=== PATIENT | male | born 2005 | race Caucasian/White ===

== ENCOUNTER 2025-04-12 17:44 | Emergency (ER) | payer BC, SELFPAY ==
--- NOTE | ~2025-04-12 | XR_ITS ---
XR chest 2V Ordering provider: Yuko Manley NP History: 19 years Male with . cough, SOB . Comparison: None. FINDINGS: MEDIASTINUM: The cardiac silhouette is not enlarged. LUNGS: No infiltrates, effusions or pneumothorax. OTHER: No free air under the diaphragm. IMPRESSION: No acute cardiopulmonary pathology. Reviewed, dictated and finalized at location A.
[2025-04-12 17:52] VITALS: BP 123/73; PULSE 95; RESP 16; TEMP 37.5; O2SAT 99
--- OUTSIDE RECORDS SUMMARY | 2025-04-12 18:20 | XMS_ITS | Clinical Summary ---
Author Organization [facility] Address [address] [address] Phone Care Team Providers Care Email Specialist Name Role Phone Unavailable Primary Care Provider Unavailabl e Allergies No known active allergies Medications Naproxen Sodium (ALEVE PO) Take by mouth. Active Active Problems No known active problems Immunizations Immunization Administration Dates Next Due COVID-19, Mrna, Lnp-s, Pf, 5 0 mcg/0.5 mL 11/12/2023 Covid-19, Mrna, Lnp-s, Pf, 3 0 Mcg/0.3 Ml Dose (Pfizer) 04/15/2021 DTAP VACCINE 2003,2003,2003 Hepatitis B Vaccine, Pediatric/adolescent 2003,2003,2003,04/26 Hib Vaccine,unspecified Formulation 2003,1 ,2003 Inactivated Polio Vaccine 2003,2003, 2003 Influenza Vaccine, Quadrivalent, PF 11/12/2023,1 12/16/2020 Meningococcal Vaccine 08/15/2020,03/31/2017,05/2014 Pneumococcal Vaccine Peds - 7 Valent 2003, 2003,2003 TDAP Vaccine 08/15/2023,03/31/2017,06/08/2014 Varicella Vaccine Live 08/08/2014 Family History Medical History Relation Name Comments No Known Problems Father Thyroid Disease Half-Sister Parkinsonism Maternal Grandfather Aneurysm Maternal Grandmother AAA Hypertension Maternal Grandmother No Known Problems Mother No Known Problems Paternal Grandfather Diabetes Paternal Grandmother Heart Attack Paternal Grandmother Heart Surgery Paternal Grandmother No Known Problems Sister Relation Name Status Comments Father Alive Half-Sister Alive Maternal Grandfather Alive Maternal Grandmother Alive Mother Alive Paternal Grandfather Alive Paternal Grandmother Alive Sister Alive Social History Tobacco Use Types Packs/Day Years Used Date Smoking Tobacco: Never Smokeless Tobacco: Never Tobacco Cessation:Counseling Given: Yes Alcohol Use Standard Drinks/Week Comments Never 0 (1 standard drink = 0.6 oz pur e alcohol) AUDIT-C Answer Date Recorded Q1: How often do you have a drink containing alc ohol? Never 06/15/2020 Average Number of Drinks Not on file 020 Frequency of Binge Drinking Not on file 06/02 PHQ-2 Answer Date Recorded Total Score - Questions 1-9 0 06/02 Education Answer Date Recorded What is the highest level of school you have completed or the highest degree you have received? Some college, no degree 06/05/2023 Sexually Active Control Partners Comments Not Currently Female Sex and Gender Information Value Date Recorded Sex Assigned at Not on file Legal Sex Male 10:17 AM CDT Gender Identity Not on file Sexual Orientation Not on file Last Filed Vital Signs Vital Sign Reading Time Taken Comments Blood Pressure 120/66 06/05/2023 2:37 PM CDT Pulse 86 06/05/2023 2:37 PM CDT Temperature 37.1 C (98.8 F) 06/05/2023 2:37 PM CDT Respiratory Rate 18 06/05/2023 2:37 PM CDT Oxygen Saturation 98% 06/05/2023 2:37 PM CDT Inhaled Oxygen Concentration - - Weight 90.6 kg (199 lb 11.2 oz) 06/05/2023 2:37 PM CDT Height 190.5 cm (6' 3) 06/05/2023 2:37 PM CDT Body Mass Index 24.96 06/05/2023 2:37 PM CDT Plan of Treatment Health Maintenance Due Date Last Done Comments Human Papillomavirus (HPV) Immunization (1 - Male 3-dose series) 2018 Meningococcal B Immunization (1 of 2 - Standard) 2019 SARS-COV-2 Immunization ( season) 2024 11/12/2023, 11/10/2021, 04/15/2021, Additional history exists Influenza Immunization (Season Ended) 2025 11/12/2023, 10/15/2021 DTaP/Tdap/Td Immunization (7 - Td or Tdap) 08/15/2033 08/15/2023, 03/31/2017, 06/08/2014, Additional history exists Respiratory Syncytial Virus (RSV) Immunization (Adult) (1 - 1-dose 75+ series) 2078 Hepatitis B Immunization Completed , 2003, 2003, Additional history exists Pneumococcal Immunization Combined Aged Out 2003, 2003, 2003 No longer eligible based on patient's age to complete this topic Polio (IPV) Immunization Discontinued , 2003, 2003 Varicella Immunization Discontinued 08/08/2014 Meningococcal Immunization (ACWY) Completed 08/15/2020, 03/31/2017, 06/08/2014 Hepatitis C Virus (HCV) Screening Discontinued Rotavirus Immunization Aged Out No lo nger eligible based on patient's age to complete this topic Insurance [facility]
--- OUTSIDE RECORDS SUMMARY | 2025-04-12 18:21 | XMS_ITS | Referral Summary ---
Author Organization [facility] [address] [facility] Address [address] [place] [address] Care Team Providers Care Shingle Trimmer Name Role Phone Tonia Canela NP Primary Care Provider [phone] Allergies No known active allergies Medications No known medications Active Problems No known active problems Immunizations Immunization Administration Dates Next Due DTaP 2003,2003,2003 Hep B, Adolescent or Pediatric 3,2003,2003,04/26 HiB 2003,2003,2003 IPV 2003,2003,2003 Influenza, Quadrivalent, Spl it, Preservative Free, Intramuscular 11/12/2023,10/15/2021 Influenza, Trivalent, Preser vative Free, Intramuscular 08/12/2024 Meningococcal MCV4P (Menactra) 08/15/2020,2016,06/08/2014 Pneumococcal Conjugate 7-Valent 2003,08/28,2003 Tdap 08/15/2023,03/31/2017,06/08/2014 Varicella 08/08/2014 Social History Tobacco Use Types Packs/Day Years Used Date Smoking Tobacco: Never Cigarettes Smokeless Tobacco: Never Tobacco Cessation:Counseling Given: Not Answered Alcohol Use Standard Drinks/Week Comments No 0 (1 standard drink = 0.6 oz pur e alcohol) AUDIT-C Answer Date Recorded Q1: How often do you have a drink containing alc ohol? Monthly or less 08/12/2024 Q2: How many drinks containi ng alcohol do you have on a typical day when you are drinking? 1 or 2 08/12/2024 Q3: How often do you have si x or more drinks on one occasion? 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 Gender Identity Not on file Sexual Orientation Not on file Last Filed Vital Signs Vital Sign Reading Time Taken Comments Blood Pressure 112/76 08/12/2024 2:52 PM CDT Pulse 68 08/12/2024 2:52 PM CDT Temperature 36.8 C (98.2 F) 08/12/2024 2:52 PM CDT Respiratory Rate 16 08/12/2024 2:52 PM CDT Oxygen Saturation 99% 08/12/2024 2:52 PM CDT Inhaled Oxygen Concentration - - Weight 95.1 kg (209 lb 9.6 oz) 08/12/2024 2:52 P M CDT Height 188 cm (6' 2) 08/12/2024 2:52 PM CDT Body Mass Index 26.91 08/12/2024 2:52 PM CDT Plan of Treatment Not on file Procedures Procedure Name Priority Date/Time Associated Diagnosis Comments HEPATITIS C ANTIBODY Routine 08/12/2024 3:18 PM CDT Encounter for hepatitis C screening test for low risk patient from Last 3 Months or Most Recently Relevant to Health Maintenance Results * Hepatitis C antibody Blood (08/12/2024 3:18 PM CDT) Hep C Ab Nonreactive Nonreactive Comment: Interpretive Data Nonreactive: Antibodies to HCV not detected. Does NOT exclude the possibility of recent exposure to HCV. Equivocal: Equivocal for HCV antibodies. Supplemental molecular testing will be automatically performed to determine infection status in accordance with current CDC screening recommendations. Reactive: Positive for HCV antibodies. This may represent current or past HCV infection. Supplemental molecular testing will be automatically performed to determine current infection status in accordance with current CDC screening recommendations. Interpretive data was last revised on 2020. Testing performed by: [facility], [address] [place] [address]., [id number] Blood 08/12/2024 3:18 PM CDT 08/12/2024 8:19 PM CDT us Tonia Canela NP LAB MICROBIOLOGY - GENERAL ORDER DAVID Final Result [facility]) [address] [facility] Department [place] [address] from Last 3 Months or Most Recently Relevant to Health Maintenance Insurance [facility] [place] [address] [employer] OOS BLUE ACC CHOICE OOS Care Teams Shingle Trimmer Relationship Specialty Start Date End Date Tonia Canela NP [address] [place] [address] PCP - General Family Medicine 08/12/24
--- OUTSIDE RECORDS SUMMARY | 2025-04-12 18:21 | XMS_ITS | Clinical Summary ---
Author Organization [facility] [address] [facility] Address [address] [place] [address] Care Team Providers Care Homeopathic Doctor Name Role Phone Tonia Canela NP Primary Care Provider [phone] Allergies No known active allergies Medications No known medications Active Problems No known active problems Immunizations Immunization Administration Dates Next Due DTaP 2003,2003,2003 Hep B, Adolescent or Pediatric 3,2003,2003,04/26 HiB 2003,2003,2003 IPV 2003,2003,2003 Influenza, Quadrivalent, Spl it, Preservative Free, Intramuscular 11/12/2023,10/15/2021 Influenza, Trivalent, Preser vative Free, Intramuscular 08/12/2024 Meningococcal MCV4P (Menactra) 08/15/2020,2016,06/08/2014 Pneumococcal Conjugate 7-Valent 2003,08/28,2003 Tdap 08/15/2023,03/31/2017,06/08/2014 Varicella 08/08/2014 Medical History Medical History Date Comments Known health problems: none Family History Medical History Relation Name Comments Hearing loss Father Yajaira Springer Hypertension Father Yajaira Springer Obesity Father Yajaira Springer Early Maternal Grandmother Vilma Anguianokle Heart disease Maternal Grandmother Vilma Chamberlaine Stroke Maternal Grandmother Vilma Pichardo Early Mother Hien Springer Hypertension Mother Hien Springer Obesity Mother Hien Springer Diabetes Paternal Grandmother Lulu Jarrell Early Paternal Grandmother Lulu Jarrell Heart attack Paternal Grandmother Lulu Jarrell Heart disease Paternal Grandmother Lulu Jarrell Cancer Neg Hx Relation Name Status Comments Father Yajaira Springer Maternal Grandmother Vilma Pichardo Mother Hien Springer Paternal Grandmother Lulu Jarrell Social History Tobacco Use Types Packs/Day Years [...] on file 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 Gender Identity Not on file Sexual Orientation Not on file Obstetrics History Last Filed Vital Signs Vital Sign Reading [...] 08/12/2024 2:52 PM CDT Plan of Treatment Health Maintenance Due Date Last Done Comments Varicella Vaccines (2 of 2 - 2-dose childhood series) 10/31/2014 08/08/2014 HPV Vaccines (1 - Male 3-dose series) 2018 Meningococcal B Vaccine (1 of 2 - Standard) 2019 Covid-19 Vaccine ( season) 2024 11/12/2023, 11/10/2021, 04/15/2021, Additional history exists Depression Screening 08/12/2025 08/12/2024 Regular Well Visit/Exam 18-64 08/12/2025 08/12/2024 DTaP/Tdap/Td Vaccine (7 - Td or Tdap) 08/15/2033 08/15/2023, 03/31/2017, 06/08/2014, Additional history exists Hepatitis B Screening Completed 2003 , 2003, 2003, Additional history exists Pneumococcal vaccine <65 Aged Out 003, 2003, 2003 No longer eligible based on patient's age to complete this topic Meningococcal Vaccine Completed 08/15/2020 , 03/31/2017, 06/08/2014 Hepatitis C Screening Completed 08/12/2024 Influenza Vaccine Completed 08/12/2024, , 10/15/2021 Procedures Procedure Name Priority Date/Time Associated Diagnosis [...] last revised on 2020. Testing performed by: [facility], [address] [place] [address], [place]., [address] Blood 08/12/2024 3:18 PM CDT 08/12/2024 8:19 PM CDT us Tonia Canela NP LAB MICROBIOLOGY - GENERAL ORDER DAVID Final Result [facility] 1 [facility] Department of Laboratories [place], [place] [id number] from Last 3 Months or Most Recently Relevant to Health Maintenance Insurance [facility] [place] [address] [employer] Care Teams Homeopathic Doctor Relationship Specialty Start Date End Date Tonia Canela NP [address] [place] [address] PCP - General Family Medicine 08/12/24
--- NOTE | 2025-04-12 18:36 | ED.URI ---
HPI - URI/Sore Throat General Chief Complaint: Upper Respiratory Infection Stated Complaint: Shortness of Breath/Cough Time Seen by Provider: 04/12/25 18:36 Source: patient Mode of arrival: ambulatory Limitations: no limitations History of Present Illness HPI Narrative: 19-year-old male presents with complaint of sinus congestion, postnasal drainage, sore throat, coughing getting progressively worse over the last 6-7 days. Not taking any [id number] medications to treat his symptoms. Has felt short of breath the last 2 days. Afebrile. All systems reviewed and negative except as noted above. Related Data Allergies Allergy/AdvReac Type Severity Reaction Status Date / Time No Known Allergies Allergy Mild Verified 04/12/25 18:14 Review of Systems Review of Systems: CONSTITUTIONAL: Denies fever, chills, or sweats. reports fatigue. EYES: Denies visual changes, redness, or discharge. ENT: Reports rhinorrhea, congestion, sore throat, postnasal drainage. Denies otalgia. CARDIOVASCULAR: Denies chest pain, palpitations, or edema. RESPIRATORY: Reports cough and dyspnea with exertion GASTROINTESTINAL: Denies abdominal pain, nausea, vomiting, or diarrhea. GENITOURINARY: Denies dysuria or hematuria. SKIN: Denies rash or itching. MUSCULOSKELETAL: Denies back pain, joint pain, or myalgia. NEUROLOGIC: Denies headache, numbness, or weakness. PSYCHIATRIC: Denies anxiety or depression. All other systems reviewed are negative, except as documented in HPI. PMFSH Comments At time of signature, agree with nursing past medical, surgical, social and family history. There is no relevant family history pertinent to the presenting complaint. Exam Narrative: GENERAL: This is a well-nourished, well-developed patient, in no apparent distress. HEAD: normocephalic, atraumatic. EYES: PERRL. Sclera clear/white. Vision is grossly intact. EARS: External ears normal, auditory canals clear and without drainage, TMs normal without perforation. Hearing grossly intact. NOSE: External nose normal with congestion, purulent nasal drainage, erythema and swelling to bilateral nares. Maxillary sinus tenderness on palpation THROAT: Mucous membranes moist, erythematous with postnasal drainage NECK: Neck supple, non-tender without lymphadenopathy, masses or thyromegaly. CARDIOVASCULAR: Regular rate and rhythm without murmurs, gallops, or rubs. RESPIRATORY: Decreased to bilateral lower lung lagunas. Breath sounds equal bilaterally. No wheezes, rales, or rhonchi. SKIN: warm, Dry, intact with no suspicious lesions or rash, good texture and turgor. NEURO: awake, alert, and oriented to person, place and time. There were no obvious focal neurologic abnormalities. EXTREMITIES: No joint tenderness, effusion, or edema noted. Course Course Level of Care: Express Care Visit Vital Signs Vital signs: Vital Signs Temperature 37.5 C 04/12/25 17:52 Pulse Rate 95 04/12/25 17:52 Respiratory Rate 16 04/12/25 17:52 Blood Pressure 123/73 04/12/25 17:52 Pulse Oximetry 99 04/12/25 17:52 Oxygen Delivery Room Air 04/12/25 17:52 Temperature 37.5 C 04/12/25 17:52 Pulse Rate 95 04/12/25 17:52 Respiratory Rate 16 04/12/25 17:52 Blood Pressure 123/73 04/12/25 17:52 Pulse Oximetry 99 04/12/25 17:52 Oxygen Delivery Room Air 04/12/25 17:52 reviewed MDM - URI/Sore Throat MDM Narrative Medical decision making narrative: chest x-ray normal. Will treat patient with antibiotic decongestant for bacterial sinusitis. Patient agrees with plan of care. Differential Diagnosis Differential diagnosis: Likely upper respiratory infection, sinusitis, viral infection and pharyngitis ABG Data ABG results: Agree with radiologist Interpretation: XR chest 2V Ordering provider: Yuko Manley NP History: 19 years Male with . cough, SOB . Comparison: None. FINDINGS: MEDIASTINUM: The cardiac silhouette is not enlarged. LUNGS: No infiltrates, effusions or pneumothorax. OTHER: No free air under the diaphragm. IMPRESSION: No acute cardiopulmonary pathology. Discharge Plan Discharge Clinical Impression: Acute bacterial sinusitis Patient Disposition: Home Condition: Stable Instructions: Antibiotic Form, Sinusitis (ED) Additional Instructions: your chest x-ray was normal today. Take medications as prescribed. Take Tylenol or ibuprofen every 6-8 hours as needed for pain. Drink plenty of water and rest. Follow-up with your doctor if symptoms are not improving for Patient Language: Occitan Prescriptions: New amoxicillin 875 mg tablet 875 mg PO Q12H 7 Days Qty: 14 0RF fluticasone propionate [Flonase Allergy Relief] 50 mcg/actuation spray,suspension 1 spray intranasal BID Qty: 16 0RF Rx Instructions: administer into each nostril Claritin-D 12 Hour 5-120 mg tablet extended release 12 hr 1 tablet PO Q12H PRN (Reason: nasal congestion) Qty: 20 0RF Follow-up/Referrals: Hilton,Tonia Harry [Primary Care Provider] - Time of Disposition: 19:06
== END 2025-04-12 19:10 | disposition home or self-care (01) ==
PROVIDERS: Emergency Provider Nurse Practitioner Family; PCP Nurse Practitioner
DX: J01.90 Acute sinusitis, unspecified (principal)
CPT/HCPCS: 71046; 99203; G0463